=== PATIENT | male | born 1990 | race Two or more races ===

== ENCOUNTER 2022-06-04 06:35 | Day surgery (SDC) | payer OTHER ==
[~2022-06-04 06:35] MED LIST: ZESTRIL5 MG PO
== END 2022-06-04 17:40 | disposition home or self-care (01) ==
LOC: CIR.AMB 06:35
PROVIDERS: ATTEND Orthopaedic Surgery Hand Surgery
DX: S62.011D Displaced fracture of distal pole of navicular [scaphoid] bone of right wrist, subsequent encounter for fracture with routine healing (principal); Z20.822 Contact with and (suspected) exposure to COVID-19; Z88.8 Allergy status to other drugs, medicaments and biological substances; J45.909 Unspecified asthma, uncomplicated; I10 Essential (primary) hypertension; E66.9 Obesity, unspecified